=== PATIENT | female | born 1995 | race Caucasian/White ===

== ENCOUNTER → 2016-03-17 | Outpatient (CLI) | payer BC ==
--- NOTE | 2016-03-17 10:26 | US ---
Ultrasound Pelvis Complete (Transabdominal and Endovaginal) Including Duplex/Doppler Imaging History: Dysmenorrhea. Technique: Transabdominal and endovaginal ultrasound images were obtained. Endovaginal images obtain ed for better evaluation of the uterine myometrium and adnexa. Duplex/Doppler imaging of adnexa. Findings: Uterus measures 6 x 6 x 4 cm. Endometrial thickness is 9 mm. In the endocervical canal reg ion, there is a 1.1 x 1 x 0.6 cm complex cystic lesion probably representing endometrial polyp. Right ovary measures 3.5 x 2.2 x 1.7 cm. Left ovary measures 3.2 x 3.1 x 1.3 cm. No adnexal masses. No significant free fluid in the pelvis. Color Doppler flow to both ovaries without torsion. Prominen t right adnexal vein measuring 8 mm. Impression: 1. In the cervix region, there is an endometrial polypoid lesion which appears complex cystic measuri ng 1.1 x 1 x 0.6 cm. 2. No adnexal masses or ovarian torsion.
== END ==
LOC: FIMAGING 08:55
PROVIDERS: ATTEND Obstetrics & Gynecology
DX: N94.6 Dysmenorrhea, unspecified (principal); N84.0 Polyp of corpus uteri

== ENCOUNTER 2016-04-16 06:02 | Day surgery (SDC) | payer BC ==
[2016-04-16] MEDS ORDERED: LIDOCAINE 1% 5 ML SDV ONE (06:15)
[2016-04-16 06:53] LABS: % IMMATURE GRANULYOCYTES 0.1 % (0.0-1.1); ABSOLUTE IMMATURE GRANULOCYTES 0.01 10^3/uL (0.00-0.10); ADD DIFF? NO; ADD MORPH? NO; ADD SCAN? NO; ATYPICAL LYMPHOCYTE FLAG 40 (0-99); FRAGMENT RBC FLAG 0 (0-99); HEMATOCRIT 43.1 % (38.0-47.0); LEFT SHIFT FLG 0 (0-99); LIPEMIA HEMOLYSIS FLAG 80 (0-99); MEAN CELL HEMOGLOBIN 27.2 pg (27.9-34.1); MEAN CELL HEMOGLOBIN CONCENTR. 32.5 g/dL (32.4-36.7); MEAN CELL VOLUME 83.7 fL (81.5-99.8); MEAN PLATELET VOLUME 9.3 fL (8.7-11.7); PLATELET CLUMPS FLAG 10 (0-99); PLATELET COUNT 328 10^3/uL (150-400); RED BLOOD CELL COUNT 5.15 10^6/uL (4.18-5.33); RED CELL DISTRIBUTION WIDTH 12.9 % (11.5-15.2)
[2016-04-16 06:56] LABS: COLOR YELLOW; LEUKOCYTE ESTERASE,URINE 2+ (NEGATIVE); NITRITE,URINE NEGATIVE (NEGATIVE)
[2016-04-16 07:03] LABS: MUCUS 1+ /lpf (NONE-1+); RBC,URINE 25-50 /hpf (0-3)
[2016-04-16] MEDS ORDERED: LIDOCAINE 1% 5 ML SDV ID PRN (07:06)
[2016-04-16] MEDS ORDERED: LR 1,000 ML IV ONE (07:06)
[2016-04-16] MEDS ORDERED: MIDAZOLAM 2 MG/2 ML VIAL ONE (07:14)
[2016-04-16] MEDS ORDERED: SILVER NITRATE APPLICATOR 1 APPL TP ONE (07:19)
[2016-04-16] MEDS ORDERED: fentaNYL 100 MCG/2 ML INJ ONE ×2 (07:23→08:56)
[2016-04-16] MEDS ORDERED: PROPOFOL/EMULSION 500 MG/50 ML BOTTLE IV ONE (07:24)
[2016-04-16] MEDS ORDERED: ceFAZolin 2 GM/DEXTROSE 100 ML IV ONE ×2 (07:29→07:30)
[2016-04-16] MEDS ORDERED: PROPOFOL 200 MG/20 ML VIAL ONE (08:05)
[2016-04-16] MEDS ORDERED: HYDROCODONE/APAP 5/325 TAB PO PRN (08:43)
[2016-04-16] MEDS ORDERED: ONDANSETRON 4 MG/2 ML VIAL IVP ONE (09:00)
--- NOTE | 2016-04-18 18:04 | GOP ---
[f rep st] OPERATIVE REPORT DATE OF OPERATION: 04/16/2016 SURGEON: Ellen Blunt MD RN MANAGER: None. ANESTHESIA: General. PREOPERATIVE DIAGNOSIS: 1. Endometrial mass. 2. Dysmenorrhea. POSTOPERATIVE DIAGNOSIS: 1. Thickened endometrium. 2. Dysmenorrhea. PROCEDURE PERFORMED: Hysteroscopy, dilation and curettage. FINDINGS: Her uterine cavity was evaluated closely hysteroscopically with no clear enlarged masses s een. The lining was slightly thickened and the entire lining was sampled completely under direct vis ualization with the 2.9 morcellator using the TruClear hysteroscope. Bilateral ostia were seen clear ly, and no masses were visualized during insertion and removal of the hysteroscope within the cervica l canal. SPECIMENS: Endometrial curettings. ESTIMATED BLOOD LOSS: Less than 5 cc.endometrial DESCRIPTION OF PROCEDURE: Patient was taken to the operating room, where general anesthesia was foun d to be adequate. Patient was prepared and draped in normal sterile fashion in the dorsal lithotomy position. A weighted speculum was placed in the patient's vagina and a Owusu retractor used to visualize the cer vix clearly. A single-toothed tenaculum was placed on the anterior lip of the cervix and the cervix was gently dilated up to 6 mm using Hegar dilators without any complications. A 0-degree 5 mm TruClear hysteroscope was placed into the cervix and advanced into the uterine cavity easily. Bilateral ostia were seen clearly. The endometrial lining did appear thickened however, no distinct mass was visualized. The endometrial lining was sampled and removed circumferentially unde r direct visualization with the 2.9 morcellator. The hysteroscope was then removed slowly, and the e ndocervical canal was visualized clearly with no masses noted within the canal. The hysteroscope was removed and the single-toothed tenaculum was removed from the cervix. Hemostasi s was obtained with silver nitrate. There was a fluid deficit of approximately 400 cc however, this was an estimate as there was a significant amount of fluid on the operating room floor. There were n o immediate complications. All sponge and lap counts were correct x2. The patient was awakened from anesthesia without any complications and transferred to the PACU in sta ble and good condition. COMPLICATIONS: None. DRAINS: None. IV FLUIDS: 600 cc. URINE OUTPUT: None. /[id number]/MODL
== END 2016-04-16 10:35 | disposition home or self-care (01) ==
LOC: FSGY 06:02
PROVIDERS: ATTEND Obstetrics & Gynecology
PROC: 0UDB8ZX Extraction of Endometrium, Via Natural or Artificial Opening Endoscopic, Diagnostic (ICD-10-PCS; principal; 2016-04-16 07:30)
DX: N85.8 Other specified noninflammatory disorders of uterus (principal); N94.6 Dysmenorrhea, unspecified
CPT/HCPCS: 58558; C1782; J2250; J2704; J3010

== ENCOUNTER 2017-07-03 19:55 | Emergency (ER) | payer BC ==
--- NOTE | 2017-07-03 20:26 | EDPHY ---
H & P Time Seen by Provider: 07/03/17 20:13 HPI/ROS: CHIEF COMPLAINT: Left finger laceration HISTORY OF PRESENT ILLNESS: 22-year-old female presents to the emergency department with a laceration to his left index finger. The patient was at home and accidentally cut her finger with a knife. She is right-hand dominant. She was able to control the bleeding with firm direct pressure. Denies any other trauma or injury. She is unsure of her last tetanus shot. ROS: She denies numbness or tingling in her fingers, retained foreign body. Past Medical/Surgical History: Negative Social History: Single Smoking Status: Never smoked Physical Exam: On examination the patient has a 1.5 cm laceration to the dorsal aspect of the left index finger just distal to the D IP joint. There is slow active bleeding noted. Normal sensation to light touch with normal 2 point discrimination. No evidence of retained foreign body. Full flexion and extension of the left finger. No palpable bony tenderness. The other fingers do not appear injured. Constitutional: Initial Vital Signs Temperature (C) 36.6 C 07/03/17 19:58 Heart Rate 66 07/03/17 19:58 Respiratory Rate 16 07/03/17 19:58 Blood Pressure 121/69 H 07/03/17 19:58 O2 Sat (%) 98 07/03/17 19:58 O2 Delivery Mode Room Air Allergies/Adverse Reactions: No Known Allergies Allergy (Verified 07/03/17 20:01) Home Medications: Medication Instructions Recorded Carafate 1 GM (*) 04/06/16 Lexapro 04/06/16 MDM/Departure - MDM Procedures: Laceration repair. Verbal consent was obtained from the patient. The 1.5 cm laceration on the left index finger was anesthetized using digital block using 1% lidocaine without epinephrine 0.5% bupivacaine without epinephrine. The wound was irrigated with saline, draped and explored to its base with a gloved finger. There were no deep structures involved. No tendon injury was identified. The wound was repaired with a 5 0 Prolene, 3 sutures. The wound repair was simple. The procedure was performed by myself. Medications Given: Discontinued Medications Diphtheria/Tetanus/Acell Pertussis (Boostrix) 0.5 ml IM .ONCE ONE Stop: 07/03/17 20:58 Last Admin: 07/03/17 21:04 Dose: 0.5 ml ED Course/Re-evaluation: 22-year-old female presents to the emergency department left finger laceration. Laceration was repaired, see procedure note. Her tetanus shot was updated. She was given wound care precautions. - Depart Disposition: Home, Routine, Self-Care Clinical Impression: Laceration of left index finger Qualifiers: Encounter type: initial encounter Damage to nail status: without damage Foreign body presence: without foreign body Qualified Code(s): S61.211A - Laceration without foreign body of left index finger without damage to nail, initial encounter Condition: Good Instructions: Care For Your Stitches (ED), Laceration (ED), Acute Wounds (ED) Additional Instructions: Wound Care Follow-Up: Removal of sutures in 10 days. Suture removal is complimentary in uncomplicated cases. Infection or abnormal findings would require reevaluation by the MD. In that case, you may be billed. Return if you notice any signs or symptoms of infection such as redness, swelling, increased pain, fever, purulent drainage. Keep wound dry, clean and protected. Your given a tetanus shot today in the emergency department. Please document this for your records. Referrals: NATALIE SPARROW [Primary Care Provider] - As per Instructions
[2017-07-03] MEDS ORDERED: TDAP ADULT 0.5 ML INJ (BOOSTRIX) IM ONE (20:57)
[2017-07-03 21:09] VITALS: BP 120/84
== END 2017-07-03 21:09 | disposition home or self-care (01) ==
PROC: 0HQGXZZ Repair Left Hand Skin, External Approach (ICD-10-PCS; principal; 2017-07-03)
DX: S61.211A Laceration without foreign body of left index finger without damage to nail, initial encounter (principal); Z23 Encounter for immunization; W26.0XXA Contact with knife, initial encounter; Y92.009 Unspecified place in unspecified non-institutional (private) residence as the place of occurrence of the external cause

== ENCOUNTER 2018-05-21 11:52 | Inpatient (IN) | payer BC ==
[2018-05-21] MEDS ORDERED: KETOROLAC 30 MG/1 ML SDV IVP ONE (13:30)
[2018-05-21] MEDS ORDERED: PROMETHAZINE HCL 25 MG/ML INJ IVP ONE (13:30)
[2018-05-21] MEDS ORDERED: NS 1,000 ML IV ONE (13:30)
--- NOTE | 2018-05-21 13:41 | EDPHY ---
H & P Stated Complaint: abd pain bloody loose stools [facility] Time Seen by Provider: 05/21/18 13:27 HPI/ROS: HPI: This is a 22-year-old female who presents with Chief Complaint: abd pain bloody loose stools [facility] working her up for IBS Location: Abdomen Quality: Cramping pain Duration: Several days Signs and Symptoms: no fever, no nausea, no vomiting, no hematemesis, + blood in stool, + abdominal bloating, + diarrhea, no back pain, no urinary symptoms, no bleeding/discharge, no indigestion, no chest pain, no shortness of breath Timing: Acute on chronic Severity: Moderate Context: Patient presents with several day history of acute on chronic generalized abdominal cramping and pain associated with loose stools 2-3 times per day and blood tinged stool when wiping with toilet paper. No regular alcohol or NSAID use. LMP 2-3 weeks ago. Followed by [facility] and working her up for IBS. Taking Linzess for chronic constipation. Patient is eating and drinking normally. Has never had a colonoscopy. No history of colon cancer, Crohn's or ulcerative colitis in the family. Modifying Factors: See above Comment: ROS: A comprehensive 10 system review of systems is otherwise negative aside from elements mentioned in the history of present illness. MEDICAL/SURGICAL/SOCIAL HISTORY: Medical history: depression, gerd, uterine surg hemorrhoid banding Surgical history: Denies Social history: Never smoked. Family history noncontributory. CONSTITUTIONAL: Well-developed, well-nourished, extremely well-appearing young adult white female, awake and alert, no obvious distress HEENT: Atraumatic and normocephalic, PERRL, EOMI. Nares patent; no rhinorrhea; no nasal mucosal edema. Tympanic membranes clear. Oropharynx clear, no exudate and moist pink mucosa. Airway patent. No lymphadenopathy. No meningismus. Cardiovascular: Normal S1/S2, regular rate, regular rhythm, without murmur rub or gallop. PULMONARY/CHEST: Symmetrical and nontender. Clear to auscultation bilaterally. Good air movement. No accessory muscle usage. ABDOMEN: Soft, nondistended, mild generalized abdominal tenderness, no rebound , no guarding, no peritoneal signs, no masses or organomegaly. No CVAT. Sounds heard x4 quadrants. EXTREMITIES: 2/2 pulses, strength 5/5, no deformities, no clubbing, no cyanosis or edema. NEUROLOGICAL: no focal neuro deficits. GCS 15. SKIN: Warm and dry, no erythema. no rash. Good capillary refill. Source: Patient Exam Limitations: No limitations - Personal History LMP (Females 10-55): 22-28 Days Ago Current Tetanus Diphtheria and Acellular Pertussis (TDAP): Yes - Medical/Surgical History Hx Asthma: No Hx Chronic Respiratory Disease: No Hx Diabetes: No Hx Cardiac Disease: No Hx Renal Disease: No Hx Cirrhosis: No Hx Alcoholism: No Hx HIV/AIDS: No Hx Splenectomy or Spleen Trauma: No Other PMH: depression, gerd, uterine surg hemorrhoid banding - Social History Smoking Status: Never smoked Constitutional: Initial Vital Signs Temperature (C) 36.7 C 05/21/18 12:04 Heart Rate 92 05/21/18 12:04 Respiratory Rate 17 05/21/18 12:04 Blood Pressure 96/74 L 05/21/18 12:04 O2 Sat (%) 97 05/21/18 12:04 O2 Delivery Mode Room Air Allergies/Adverse Reactions: No Known Allergies Allergy (Verified 05/21/18 12:03) Home Medications: Medication Instructions Recorded Carafate 1 GM (*) 04/06/16 Lexapro 04/06/16 AMOXICILLIN 05/21/18 Linzess 05/21/18 Medical Decision Making - Diagnostics Imaging Results: Imaging Impressions Abdomen CT 05/21/18 13:30 Impression: Suspect colitis, predominantly involving the distal sigmoid and rectum. Secondary inflammation from some other pelvic inflammatory process cannot be excluded. A perforation cannot be excluded since there is free fluid in the pelvis. A few tiny gas bubbles in the right adnexa are present and difficult to determine if they are in or out of bowel. Results discussed with Melissa Gimenez at 3:35 PM. General information for patients regarding this examination can be found at [email or web address]. If you have questions or comments about this report, please contact me at (hospital) or [phone] (cell). ED Course/Re-evaluation: Vital signs reviewed and stable upon arrival. IV access, laboratory studies, urinalysis, CT abdomen and pelvis scan ordered. GI pathogen PCR ordered but no stool obtained GI. Given 1 L normal saline, IV Toradol 30 mg, IV promethazine 12.5 mg 1538: Labs reviewed. WBC 10 K. No signs of anemia/platelet dysfunction/YOSVANY/ elevated LFTs/electrolyte imbalance/pancreatitis. Urinalysis shows 1+ ketones, 1+ blood, 3-5 WBCs 1538: Called by radiologist, Dr. Rutherford, who reports CT abdomen and pelvis scan shows colitis predominantly in the distal sigmoid and rectum but no free air or perforation. Given IV Cipro and IV Flagyl. I suspect that this is likely ulcerative colitis and less likely infectious. 1539: ED decision to consult hospitalist for admission for colitis. Spoke with Dr. Conti who kindly agrees to admit patient and provide further care. Spoke with gastroenterology, Dr. Curry, who kindly agrees to consult on the patient. This patient was seen under the supervision of my secondary supervising physician. I evaluated care for this patient with attending. Differential Diagnosis: Abdominal pain including but not limited to appendicitis, cholecystitis, gastritis and urinary tract infection. - Data Points Laboratory Results: Laboratory Results 05/21/18 13:50 05/21/18 13:50 05/21/18 05/21/18 05/21/18 13:50 13:50 13:50 WBC RBC Hgb Hct MCV MCH MCHC RDW Plt Count MPV Neut % (Auto) Lymph % (Auto) [place] % (Auto) Eos % (Auto) Baso % (Auto) Nucleat RBC Rel Count Absolute Neuts (auto) Absolute Lymphs (auto) Absolute Monos (auto) Absolute Eos (auto) Absolute Basos (auto) Absolute Nucleated RBC Immature Gran % Immature Gran # Sodium 137 mEq/L mEq/L (135-145) Potassium 3.8 mEq/L mEq/L (3.5-5.2) Chloride 104 mEq/L mEq/L (97-110) Carbon Dioxide 23 mEq/l mEq/l (22-31) Anion Gap 10 mEq/L mEq/L (6-14) BUN 9 mg/dL mg/dL (7-23) Creatinine 0.6 mg/dL mg/dL (0.6-1.0) Estimated GFR > 60 Glucose 80 mg/dL mg/dL (70-100) Calcium 9.1 mg/dL mg/dL (8.5-10.4) Total Bilirubin 0.3 mg/dL mg/dL (0.1-1.4) Conjugated Bilirubin 0.3 mg/dL mg/dL (0.0-0.5) Unconjugated Bilirubin 0.0 mg/dL mg/dL (0.0-1.1) AST 19 IU/L IU/L (14-46) ALT 22 IU/L IU/L (9-52) Alkaline Phosphatase 82 IU/L IU/L (38-126) Total Protein 7.1 g/dL g/dL (6.3-8.2) Albumin 3.9 g/dL g/dL (3.5-5.0) Lipase 77 IU/L IU/L (23-300) Beta HCG, Qual NEGATIVE Urine Color YELLOW Urine Appearance HAZY Urine pH 6.0 (5.0-7.5) Ur Specific [place] 1.025 (1.002-1.030) Urine Protein NEGATIVE (NEGATIVE) Urine Ketones 1+ H (NEGATIVE) Urine Blood 1+ H (NEGATIVE) Urine Nitrate NEGATIVE (NEGATIVE) Urine Bilirubin NEGATIVE (NEGATIVE) Urine Urobilinogen NEGATIVE EU EU (0.2-1.0) Ur Leukocyte Esterase NEGATIVE (NEGATIVE) Urine RBC 1-3 /hpf /hpf (0-3) Urine WBC 3-5 /hpf H /hpf (0-3) Ur Epithelial Cells 1+ /lpf /lpf (NONE-1+) Urine Mucus 1+ /lpf /lpf (NONE-1+) Urine Glucose NEGATIVE (NEGATIVE) 05/21/18 13:50 WBC 9.60 10^3/uL H 10^3/uL (3.80-9.50) RBC 4.41 10^6/uL 10^6/uL (4.18-5.33) Hgb 12.3 g/dL L g/dL (12.6-16.3) Hct 38.2 % % (38.0-47.0) MCV 86.6 fL fL (81.5-99.8) MCH 27.9 pg pg (27.9-34.1) MCHC 32.2 g/dL L g/dL (32.4-36.7) RDW 12.7 % % (11.5-15.2) Plt Count 358 10^3/uL 10^3/uL (150-400) MPV 9.4 fL fL (8.7-11.7) Neut % (Auto) 64.1 % % (39.3-74.2) Lymph % (Auto) 18.5 % % (15.0-45.0) [place] % (Auto) 10.0 % % (4.5-13.0) Eos % (Auto) 6.3 % % (0.6-7.6) Baso % (Auto) 0.7 % % (0.3-1.7) Nucleat RBC Rel Count 0.0 % % (0.0-0.2) Absolute Neuts (auto) 6.15 10^3/uL 10^3/uL (1.70-6.50) Absolute Lymphs (auto) 1.78 10^3/uL 10^3/uL (1.00-3.00) Absolute Monos (auto) 0.96 10^3/uL H 10^3/uL (0.30-0.80) Absolute Eos (auto) 0.60 10^3/uL H 10^3/uL (0.03-0.40) Absolute Basos (auto) 0.07 10^3/uL 10^3/uL (0.02-0.10) Absolute Nucleated RBC 0.00 10^3/uL 10^3/uL (0-0.01) Immature Gran % 0.4 % % (0.0-1.1) Immature Gran # 0.04 10^3/uL 10^3/uL (0.00-0.10) Sodium Potassium Chloride Carbon Dioxide Anion Gap BUN Creatinine Estimated GFR Glucose Calcium Total Bilirubin Conjugated Bilirubin Unconjugated Bilirubin AST ALT Alkaline Phosphatase Total Protein Albumin Lipase Beta HCG, Qual Urine Color Urine Appearance Urine pH Ur Specific [place] Urine Protein Urine Ketones Urine Blood Urine Nitrate Urine Bilirubin Urine Urobilinogen Ur Leukocyte Esterase Urine RBC Urine WBC Ur Epithelial Cells Urine Mucus Urine Glucose Medications Given: Discontinued Medications Sodium Chloride (Ns) 1,000 mls @ 0 mls/hr IV EDNOW ONE; Wide Open PRN Reason: Protocol Stop: 05/21/18 13:31 Last Admin: 05/21/18 14:00 Dose: 1,000 mls Ketorolac Tromethamine (Toradol) 30 mg IVP EDNOW ONE Stop: 05/21/18 13:31 Last Admin: 05/21/18 14:02 Dose: 30 mg Promethazine HCl (Phenergan) 12.5 mg IVP EDNOW ONE Stop: 05/21/18 13:31 Last Admin: 05/21/18 14:31 Dose: Not Given Departure - Departure Disposition: [facility] Clinical Impression: Colitis Condition: Fair
[2018-05-21 14:17] LABS: PLATELET COUNT 358 10^3/uL (150-400)
[2018-05-21] MEDS ORDERED: IOPAMIDOL (ISOVUE-300) 100 ML BTL ONE (14:56)
[2018-05-21] MEDS ORDERED: CIPROFLOXACIN 400 MG/DEXTROSE 200 ML IV ONE (15:39)
--- NOTE | 2018-05-21 16:37 | SOAPPROG ---
ROD Progress Note Assessment/Plan: Assessment:Plan: see full dictation to follow 22 y/o female with few months of lgi sx's - now with colitis noted on CT - prob Left sided UC but on Abx frequently stool PCR - if negative then flex-sig form dx, If PCR + then treat infection and plan for outpt flex-sig in few weeks. If c/w UC - mesalamine and steroids - may try Uceris if not too $$$ or low dose prednisone Harry Curry MD [phone] 05/21/18 16:34 Objective: Vital Signs Temp Pulse Resp BP Pulse Ox 36.7 C 81 17 98/56 L 98 05/21/18 16:00 05/21/18 16:00 05/21/18 16:00 05/21/18 16:00 05/21/18 16:00 ICD10 Worksheet Patient Problems: Problems Problem Status Onset Colitis Acute
--- NOTE | 2018-05-21 17:10 | ASMTCMCOM ---
CM Note CM Note Notes: Reviewed chart. Pt presented to the Emergency Department with abdominal pain and loose, bloody stools. Pt is being worked up by [facility] for IBS. History includes depression, GERD, uterine surgery, hemorrhoid banding, chronic constipation. Per nursing notes, pt is and lives with her spouse. Pt admitted for further evaluation and treatment. Discharge needs remain unclear at this time. Anticipate pt will likely discharge independently when medically stable. CM will continue to follow for any potential needs. Discharge Plan: Likely independent Date Signed: 05/21/2018 05:10 PM Electronically Signed By:Abiola Sanders RN
--- NOTE | 2018-05-21 17:56 | GCON ---
[f rep st] CONSULTATION DATE OF CONSULTATION: 05/21/2018 REFERRING PHYSICIAN: Melissa Gimenez PA-C HISTORY OF PRESENT ILLNESS: I have been asked by EDMUND Delgadillo to see Rubina in consultation for [facility] complaint of lower GI symptoms and abnormal CT scan. Rubina is a pleasant 22-year-old female w ho has been seen in my practice previously for what was presumed to be hemorrhoidal issues, but I thi nk it is probably left-sided ulcerative colitis. She was in usual state of health until last fall wh en she started to notice abdominal discomfort, gas, bloating, and a sensation of constipation which s he described as straining with bowel movements, which I think is more of a tenesmus. She did have so me blood noted on the toilet paper, toilet bowl and in the stool, and has passed a couple of clots as well. She was treated with rubber banding, which did have some at least temporary initial relief, b ut subsequently she continued to have symptoms. She was last seen in the office on March 31 and sh e was told if the symptoms continued, she would likely need lower endoscopy/colonoscopy, flexible sig moidoscopy for evaluation. Because of the symptoms continuing and worsening, she presented to the em ergency room with increased blood loss and discomfort. A CT scan was performed which showed changes consistent with left-sided ulcerative colitis. She is now being admitted for the above, and I am rebekah led to help and evaluate in that regard. Of note, she has been on amoxicillin intermittently for ear infections and a PCR is being obtained to make sure this is not an infectious etiology, although it is most consistent with left-sided UC by CT scan. PAST MEDICAL HISTORY: She had some uterine polyps biopsied previously. That was secondary to an abn ormal imaging study. She has had reflux and had upper endoscopies as a child. PAST SURGICAL HISTORY: Includes a uterine procedure and EGDs. MEDICATIONS: At home include amoxicillin, which she is currently taking, neomycin, polymyxin drops i n her left the ear, Linzess 72 mcg capsules, Lexapro 10 mg, and sucralfate 1 g at bedtime. ALLERGIES: No known drug allergies. SOCIAL HISTORY: She does not smoke. She drinks alcohol socially and infrequently. She is single. Her boyfriend is with her. FAMILY HISTORY: Paternal grandfather with prostate cancer, maybe bladder cancer. Father possibly wi th bone cancer. She is not sure of the other cancers in the family. She will ask her mother and fat her. REVIEW OF SYSTEMS: A complete review of systems performed is negative other than noted in the HPI. Pertinent negatives also include no fevers, chills, sweats. Pertinent positives are hematochezia, mi ld abdominal discomfort, left lower quadrant. PHYSICAL EXAM: GENERAL: Well-developed, well-nourished young female sitting in her bed in no acute distress. VITAL SIGNS: Blood pressure 98/56, pulse is 81, respirations 17, she is 98% on room air, temperature 36.7. EYES: Anicteric. FRANCIS[place], EOMI. MOUTH: No lesions. Moist mucous membranes. NECK : Supple. Full range of motion. No JVD. BACK: No spine tenderness. No CVA tenderness. LUNGS: Clear to auscultation. CARDIAC: S1, S2. Regular rate and rhythm. No murmurs, rubs, gallops apprec iated. ABDOMEN: Bowel sounds are normal in pitch and present. Soft with minimal tenderness to deep palpation to left lower quadrant. No rebound. No guarding. No hepatosplenomegaly. EXTREMITIES: No cyanosis, clubbing, or edema. NEUROLOGIC: Cranial nerves intact, nonfocal. SKIN: No stigmata o f advanced liver disease. No rashes. LABORATORY DATA: WBC 9.60, hemoglobin 12.3, hematocrit 38.2, platelet count 358. Sodium 137, potass ium 3.8, chloride 104, bicarb 23, BUN 9, creatinine 0.6, glucose 80, calcium 9.1, total bilirubin 0.3 , AST 19, ALT 22, alkaline phosphatase 82, albumin is 3.9, total protein 7.1, lipase 77. Beta HCG ne gative. Urine shows 1+ ketones, 1+ blood, 3 to 5 WBCs, nitrate negative, leukocyte esterase negative . A CT scan performed today with IV but no oral contrast showed colitis involving the distal sigmoid an d rectum, secondary inflammation from some other pelvic inflammatory process cannot be excluded. The re is a small amount of free fluid in the pelvis. Tiny gas bubbles in the right adnexa are present a nd difficult to determine if they are in or out of the bowel. A pelvic renal ultrasound performed on March 17, 2016, revealed endometrial polypoid lesion, could represent a complex cystic measuring 1. 1 x 1 x 0.6 cm. On April 18, 2016, she underwent a hysteroscopy with dilatation and curettage. Pa thology from that procedure revealed fragments of endometrial polyps, is negative for malignancy or a typia. ASSESSMENT: 1. Lower GI symptoms, including abdominal pain, alteration in stool pattern. 2. Hematochezia. 3. Abnormal CT scan. 4. All the above most consistent with left-sided ulcerative colitis. RECOMMENDATIONS: 1. Stool PCR to make sure there is no infectious etiology. If infectious etiology is present, treat as appropriate, then I do recommend a flexible sigmoidoscopy in a few weeks after antibiotics. If P CR is negative, I recommend a flexible sigmoidoscopy for evaluation of abnormality thought to be left -sided ulcerative colitis. 2. If changes are consistent with left-sided ulcerative colitis, we will start mesalamine as well as a steroid. I will see if Uceris, which is budesonide, is not too expensive as it has a high first p ass metabolism, and it may be very effective. Otherwise, we might try low-dose prednisone. 3. Further medications and follow up as above in clinical course. Thank you very much for the opportunity to participate in the patient's healthcare. Do not hesitate to call me with any questions. /[id number]/MODL
[2018-05-21] MEDS ORDERED: ONDANSETRON 4 MG/2 ML VIAL IVP PRN (19:30)
[2018-05-21] MEDS ORDERED: HYDROmorphONE/DILAUDID 1 MG/ML INJ IVP PRN (19:30)
[2018-05-21] MEDS ORDERED: traMADol 50 MG TAB PO PRN (19:30)
[2018-05-21] MEDS ORDERED: PROMETHAZINE HCL 25 MG/ML INJ IVP PRN (19:30)
[2018-05-21] MEDS ORDERED: ACETAMINOPHEN 325 MG TAB PO PRN (19:30)
--- NOTE | 2018-05-21 20:31 | GHP ---
[f rep st] HISTORY AND PHYSICAL DATE OF ADMISSION: 05/21/2018 CHIEF COMPLAINT: Bloody diarrhea. HISTORY OF PRESENT ILLNESS: Rubina is a 22-year-old female who started to have GI problems last fal . She had tenesmus and blood in her stool. It was thought to be hemorrhoids, which she had banded. Despite this treatment, she has ongoing issues. She has had continued bloody, loose stool which sims s now been going on for many weeks, getting acutely worse over the last couple of days. She has cram py abdominal pain and bloating. Last week she was standing in her kitchen, passed some gas, and the next thing she knew, there was blood streaming down the backs of her legs. She had a followup appoin tment with GI this upcoming Tuesday. The plan was to pursue outpatient colonoscopy and EGD if her symptoms did not improve, but that had not yet occurred. She was started on Linzess in March; that made her symptoms worse. Over the last couple of days, she has been having bloody bowel movements e very 20-30 minutes. She is currently on amoxicillin for a recent ear infection. PAST MEDICAL HISTORY: 1. GERD since childhood. This was diagnosed when her dentist saw acid erosions on her teeth. She h as been on anti-acid therapy since that time. She has had 4 or 5 previous EGDs but does not know of any significant findings. 2. Uterine polyps. MEDICATIONS: Please see computerized record for full detailed list. ALLERGIES: No known drug allergies. SOCIAL HISTORY: No smoking. Infrequent alcohol. She is a law student at . She lives with her [facility]. REVIEW OF SYSTEMS: Complete review of systems was obtained. Review of systems negative regarding co nstitutional, HEENT, GI, pulmonary, cardiovascular, , hematology, skin, muscular, endocrine, psych, except for positives and negatives as noted in HPI. FAMILY HISTORY: Reviewed. Family history is negative for ulcerative colitis or Crohn's. PHYSICAL EXAMINATION: GENERAL: Well-developed, well-nourished female, in no acute distress. VITAL SIGNS: Temperature is 36.9, pulse 71, blood pressure 102/58, satting 96% on room air. EYES: Normal conjunctivae. Pupils react to light. ENT: Normal ears and nose. Hearing intact. Normal lips and teeth. Oropharynx moist. NECK: Trachea midline. No thyromegaly. CHEST: Normal respiratory effo rt. LUNGS: Clear to auscultation bilaterally. CARDIOVASCULAR SYSTEM: Regular rhythm. No murmur. No lower extremity edema. ABDOMEN: Soft, nontender. No hepatosplenomegaly. SKIN: Warm, dry, int act, without rash. MUSCULOSKELETAL: No cyanosis or clubbing. Strength 5/5 in upper and lower extre mities. NEURO: Cranial nerves intact. Normal sensation to light touch. PSYCH ASSESSMENT: Alert a nd orient x3. Normal mood and affect. Normal judgment and insight. Normal memory. LABORATORY DATA: White count 9.6, hematocrit 38.2, platelets 358. Sodium 137, potassium 3.8, chloride 104, bicarb 23, BUN 9, creatinine 0.6, glucose 80. LFTs are nega tive. Beta HCG is negative. Urinalysis is negative. EMERGENCY ROOM COURSE: This case was discussed with Melissa Gimenez, emergency room provider, regarding E R course. She spoke to Dr. Curry. IMAGING: CT scan of the abdomen and pelvis shows colitis in the distal colon and rectum. ASSESSMENT AND PLAN: 1. Colitis: Suspect ulcerative colitis but need to rule out infectious colitis. Will check a GI PC R. If this is negative, then Dr. Curry plans to proceed with flexible sigmoidoscopy in the morning. 2. Recent ear infection: Continue Augmentin. 3. Gastroesophageal reflux disease: I will hold her sucralfate tonight in case Gastroenterology wan ts to do an esophagogastroduodenoscopy in the morning as well. CODE STATUS: Full. ADMISSION STATUS: Will admit to observation and re-evaluate tomorrow regarding ongoing need for hosp italization. DVT PROPHYLAXIS: She is low risk. /[id number]/MODL
[2018-05-21] MEDS: NEOMY SULF/POLYMYX B SULF/HC 10ML OTIC SOLUTION LEFTEAR SCH (20:38)
[2018-05-21] MEDS: NS 1,000 ML IV SCH (23:26)
[2018-05-22] MEDS ORDERED: Linaclotide [Linzess] 72 MCG PO SCH (07:30)
[2018-05-22] MEDS: NS 1,000 ML IV SCH (09:04)
[2018-05-22] MEDS: ESCITALOPRAM OXALATE 10 MG TAB PO SCH (09:51)
[2018-05-22] MEDS: NEOMY SULF/POLYMYX B SULF/HC 10ML OTIC SOLUTION LEFTEAR SCH ×2 (09:54→21:13)
[2018-05-22] MEDS ORDERED: MIDAZOLAM 2 MG/2 ML VIAL ONE ×2 (10:33→10:54)
[2018-05-22] MEDS ORDERED: fentaNYL 100 MCG/2 ML INJ ONE (10:33)
--- NOTE | 2018-05-22 10:37 | PDPROPOC ---
Sedation Plan of Care Sedation Plan of Care: vital signs stable, mental status noted, patient educated of risks, benefits, alternatives, patient can tolerate sedation ASA Classification: ASA 2 Planned drugs: fentanyl, midazolam Mallampati Score: Class 1 Mallampati Reference Image: Patient passed 3-3-2 rule?: Yes
[2018-05-22] MEDS ORDERED: fentaNYL 100 MCG/2 ML INJ IVP ONE (11:10)
[2018-05-22] MEDS ORDERED: MIDAZOLAM 2 MG/2 ML VIAL IVP ONE (11:10)
--- NOTE | 2018-05-22 11:24 | GIREPORT ---
[facility] Surgical Services - Endoscopy Department Patient Name: JASMIN PENDLETON Procedure Date: 05/22/2018 10:30 AM Patient Type: Inpatient Attending MD/ ER Physician: Harry Curry MD Procedure: Flexible Sigmoidoscopy Indications: Diarrhea, Abnormal CT of the GI tract Providers: Harry Curry MD Referring MD: Silvestre Carrillo MD Medicines: Fentanyl 100 micrograms IV, Midazolam 8 mg IV Complications: No immediate complications. Estimated blood loss: Minimal. Description of Procedure: After obtaining informed consent, the endoscope was passed under direct vision. Throughout the procedure, the patient's blood pressure, pulse, and oxygen saturations were monitored continuously. The Colonoscope was introduced through the anus and advanced to the left transverse colon. The flexible sigmoidoscopy was accomplished without difficulty. The patient tolerated the procedure well. The quality of the bowel preparation was fair. Moderate Sedation: Moderate (conscious) sedation was administered by the endoscopy nurse andree ghosh supervised by the endoscopist. The following parameters were monitored: oxygen saturation, heart rate, blood pressure, and response to care. To alfredo physician intraservice time was 34 minutes. Findings: The digital rectal exam was normal. A diffuse area of moderately congested, erythematous, hemorrhagic, infl ruslan and ulcerated mucosa was found in the rectum, in the descending colon, at the splenic flexure, in the mid transverse colon and in the distal transverse colon. Biopsies were taken with a cold forceps for histology . Estimated blood loss was minimal. A scattered area of mildly altered vascular and erythematous mucosa was found in the sigmoid colon. Biopsies were taken with a cold forceps for histology. Estimated blood loss was minimal. Estimated Blood Loss: Estimated blood loss was minimal. Post Op Diagnosis: - Preparation of the colon was fair. - Congested, erythematous, hemorrhagic, inflamed and ulcerated mucosa i n the rectum, in the descending colon, at the splenic flexure, in the mid transverse colon and in the distal transverse colon. Biopsied. - Altered vascular and erythematous mucosa in the sigmoid colon. Biopsi ed. Recommendation: - Await pathology results. - My office will call with the pathology result with 5-7 days. If you h ave not heard from my office by 12-14, do not assume the pathology is dakota l, please call [phone] to get the pathology results. - Use Lialda 1.2 gm at 4 tabs PO daily or other mesalamine preparation. - All mesalamine medications are equally efficacious. They include Lial da, Apriso, Asacol, Asacol HD, balsalazide among others. - Use prednisone 40 mg PO once a day. Taper by 10mg per week of no symp toms. When at 20mg taper by 5 mg per week of no symptoms. - [facility] same day. - Return to primary care physician as previously scheduled. - Return to GI clinic in 3 weeks. - Thank you for allowing me to help in your patient's care. Do not hesi doherty to call with any questions. Attending Participation: I personally performed the entire procedure. Antoinette Clark M.D Harry Curry MD 05/22/2018 11:23:51 AM This report has been signed electronicallyMattmaria de jesusw MD Antoinette Number of Addenda: 0 Note Initiated On: 05/22/2018 10:30 AM Total Procedure Duration Time 0 hours 15 minutes 37 seconds [email or web address]
[2018-05-22] MEDS: predniSONE 20 MG TAB PO SCH (12:25)
--- NOTE | 2018-05-22 15:07 | HOSPPROG ---
Hospitalist Progress Note Assessment/Plan: 22y female with bloody stool. First encounter, chart reviewed. D/W Dr Curry and RN. #Bloody stool -diffuse colitis per scope -start prednisone -PCR negative -cont supportive care #GERD -stable #Pain -abd -cont supportive meds #Ear infection -cont abx #Dispo -change to inpt status -still very little PO intake -start prednisone -consider DC in am if less pain and tolerating PO Subjective: Still having abd pain. Bloody stool. Objective: Vital Signs Temp Pulse Resp BP Pulse Ox 36.7 C 103 H 16 100/62 100 05/22/18 14:04 05/22/18 14:04 05/22/18 14:04 05/22/18 14:04 05/22/18 14:04 Microbiology 05/21/18 22:25 Gastrointestinal Tract Panel (PCR) - Final Stool No Organism Detected By Pcr Laboratory Results 05/22/18 04:55 05/21/18 05/22/18 05/23/18 05:59 05:59 05:59 Intake Total 1200 Output Total 75 Balance 1200 -75 - Physical Exam Constitutional: uncomfortable, No obese, No unkempt Eyes: PERRL, anicteric sclera, EOMI Ears, Nose, Mouth, Throat: moist mucous membranes, hearing normal, ears appear normal Cardiovascular: regular rate and rhythym, No JVD, No edema Respiratory: no respiratory distress, no rales or rhonchi, reduced air movement Gastrointestinal: normoactive bowel sounds, tenderness, No ascites Skin: warm, normal color, No mottled Musculoskeletal: normal joint ROM, no joint effusions, generalized weakness Neurologic: AAOx3 Psychiatric: interacting appropriately, not anxious, not encephalopathic, thought process linear ICD10 Worksheet Patient Problems: Problems Problem Status Onset Colitis Acute
--- NOTE | 2018-05-22 16:20 | PDMN ---
Medical Necessity Medical necessity: Change to inpt as of 05/22/18 @ 15:10, pt meets inpt criteria per MD order and [facility] M-565, Inflammatory Bowel Disease, A-2 days. 22 y/o presented w/abd pain and bloody stools, admitted w/colitis, flex sigmoidoscopy today showed diffuse colitis, upgraded to inpt for ABLA in setting of bloody diarrhea (H&H went from 12.3/38.2 yesterday to 9.9/30.8 today), persistent abdominal pain, and poor PO intake. Est LOS>2MN for ongoing monitoring/ management of above.
[2018-05-23] MEDS: oxyCODONE IR 5 MG TAB PO PRN ×2 (06:41→07:15)
[2018-05-23] MEDS: ESCITALOPRAM OXALATE 10 MG TAB PO SCH (08:58)
[2018-05-23] MEDS: predniSONE 20 MG TAB PO SCH (08:59)
[2018-05-23] MEDS: NEOMY SULF/POLYMYX B SULF/HC 10ML OTIC SOLUTION LEFTEAR SCH (09:01)
--- NOTE | 2018-05-23 10:46 | SOAPPROG ---
SOAP Progress Note Assessment/Plan: Assessment:Plan: see full dictation to follow 22 y/o female with few months of lgi sx's - now with colitis noted on CT - prob Left sided UC but on Abx frequently stool PCR - if negative then flex-sig form dx, If PCR + then treat infection and plan for outpt flex-sig in few weeks. If c/w UC - mesalamine and steroids - may try Uceris if not too $$$ or low dose prednisone Harry Curry MD [phone] 05/21/18 16:34 05/23/18 10:43 1) Colitis - more extensive on scope - inflamed form rectum to mid transverse extent of exam with possible sigmoid sparing. 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 of mesalamine (Apriso) to take and make sure doesn't worsen sx's asked to look at [email or web address] Crohn's and Colitis [employer] [facility] [place] Subjective: cc- colitis - IBD presumed UC had some pain last night early am controlled with oxy less stools still some blood Objective: Vital Signs Temp Pulse Resp BP Pulse Ox 36.8 C 90 16 106/57 L 96 05/23/18 08:25 05/23/18 08:25 05/23/18 08:25 05/23/18 08:25 05/23/18 08:25 Laboratory Results 05/23/18 06:05 05/22/18 05/23/18 05/24/18 05:59 05:59 05:59 Intake Total 1350 Output Total 500 Balance 850 A+Ox3 CTA S1S2 +BS, soft tenderness no r/g ICD10 Worksheet Patient Problems: Problems Problem Status Onset Colitis Acute
[2018-05-23 11:58] VITALS: BP 97/60
--- NOTE | 2018-05-23 12:56 | GDS ---
[f rep st] DISCHARGE SUMMARY DISCHARGE DIAGNOSES: 1. Colitis. 2. Abdominal pain. 3. Diarrhea. CONSULTATIONS: Gastroenterology. STUDIES AND PROCEDURES DONE: Flexible sigmoidoscopy. PHYSICAL EXAM: GENERAL: The patient is alert. VITAL SIGNS: Afebrile at 36.8, pulse 72, respirator y rate 16, and blood pressure 97/60. She is saturating greater than 90% on room air. I have seen an d evaluated the patient on the day of discharge. HOSPITAL COURSE: The patient is a 22-year-old female, who presented to the emergency room with compl aints of bloody diarrhea. She was evaluated during this hospitalization and diagnosed with colitis. During this hospital course, she had a consultation from Gastroenterology. A flexible sigmoidoscopy was performed demonstrating inflammation in the rectum and midtransverse colon. She was treated wit h 40 mg of prednisone and pain management. Her symptoms have improved. Her abdominal pain has lesse mara. Her diarrhea is slowing. She is tolerating a regular diet, and she will be discharged home to follow up in the outpatient setting. DISCHARGE MEDICATIONS: Include prednisone 40 mg daily x1 week, then prednisone 30 mg daily for a wee k. FOLLOWUP: Followup will be with [facility], as well as the patient's primary [facility]. PENDING STUDIES: Include biopsies done during flexible sigmoidoscopy. I have discussed the patient' s disposition with Dr. Curry of Gastroenterology, who is in agreement with this plan. TIME SPENT ON DISCHARGE: I spent greater than 35 minutes in the care, coordination, and management o f this patient's discharge. /[id number]/MODL
--- NOTE | 2018-05-29 08:25 | PQFORM ---
PHYSICIAN QUERY FORM Needs Your Response This query form is being sent to you to assure this patient record is coded properly. Please respond to the question below: CONTINUOUS MINING MACHINE LODE MINER QUESTION: Hi Acute Blood Loss Anemia was mentioned in the 05/22 progress note but no mention was made in the Discharge Summary. Did this patient have ABLA ? __x_ Yes ___ No ___ Other (Please Specify ) ___ Unable to determine Thank You Darlin MELARA English And Reading Instructor INSTRUCTIONS FOR RESPONSE: Answer question by clicking on the "Edit Document" button. Move cursor to area below the stars. When complete, hit "Save." Click on the "Sign" button, then click "Sign" again. Type in your PIN and hit "Enter." MTDD
== END 2018-05-23 14:10 | disposition home or self-care (01) | DRG 392 ==
LOC: INTOOBSV 15:45 → F3E 17:40 → OBSVTOIN 05-22 15:10
PROVIDERS: ADMIT Internal Medicine; ATTEND Internal Medicine
PROC: 0DBL8ZX Excision of Transverse Colon, Via Natural or Artificial Opening Endoscopic, Diagnostic (ICD-10-PCS; principal; 2018-05-22 17:30)
PROC: 0DBP8ZX Excision of Rectum, Via Natural or Artificial Opening Endoscopic, Diagnostic (ICD-10-PCS; principal; 2018-05-22 17:30)
PROC: 0DBN8ZX Excision of Sigmoid Colon, Via Natural or Artificial Opening Endoscopic, Diagnostic (ICD-10-PCS; principal; 2018-05-22 17:30)
PROC: 0DBM8ZX Excision of Descending Colon, Via Natural or Artificial Opening Endoscopic, Diagnostic (ICD-10-PCS; principal; 2018-05-22 17:30)
DX: K52.9 Noninfective gastroenteritis and colitis, unspecified (principal); D62 Acute posthemorrhagic anemia; K21.9 Gastro-esophageal reflux disease without esophagitis; H66.90 Otitis media, unspecified, unspecified ear
CPT/HCPCS: 96365; G0378; J0744; J1170; J1885; J2250; J2405; J3010; J7512; Q9967

== ENCOUNTER 2018-06-03 18:40 | Emergency (ER) | payer BC ==
[2018-06-03] MEDS ORDERED: HYDROmorphONE/DILAUDID 1 MG/ML INJ ONE (19:16)
[2018-06-03] MEDS ORDERED: HYDROmorphONE/DILAUDID 2 MG/ML INJ IVP ONE (19:17)
[2018-06-03] MEDS ORDERED: ONDANSETRON 4 MG/2 ML VIAL IVP ONE ×2 (19:18→19:41)
[2018-06-03] MEDS ORDERED: NALOXONE HCL 0.4 MG/ML INJ ONE (19:35)
[2018-06-03] MEDS ORDERED: ONDANSETRON 4 MG/2 ML VIAL ONE (19:36)
[2018-06-03] MEDS ORDERED: NALOXONE HCL 0.4 MG/ML INJ IVP ONE (19:37)
[2018-06-03] MEDS ORDERED: NS 1,000 ML IV ONE (19:38)
[2018-06-03] MEDS ORDERED: IOPAMIDOL (ISOVUE-300) 100 ML BTL ONE (19:46)
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
[2018-06-03] MEDS ORDERED: CYCLOBENZAPRINE 10MG PREPACK#3 BTL TAKEHOME ONE (20:56)
[2018-06-03 21:06] VITALS: BP 97/56
== END 2018-06-03 21:11 | disposition home or self-care (01) ==
DX: S32.039A Unspecified fracture of third lumbar vertebra, initial encounter for closed fracture (principal); E86.9 Volume depletion, unspecified; V80.010A Animal-rider injured by fall from or being thrown from horse in noncollision accident, initial encounter; Y93.52 Activity, horseback riding; Y92.828 Other wilderness area as the place of occurrence of the external cause
CPT/HCPCS: 82435-PO; 82565-PO; 82947-PO; 84132-PO; 84295-PO; 84520-PO; 85014-ER; 96374; J1170; J2310; J2405; Q9967